=== PATIENT | male | born 1970 | race Caucasian/White ===

== ENCOUNTER 2017-09-08 15:07 | Emergency (ER) | payer OTHER, MEDICARE ==
--- NOTE | 2017-09-08 15:37 | ULT ---
VENOUS DOPPLER ULTRASOUND OF THE LEFT LOWER EXTREMITY: HISTORY: Left lower extremity edema. TECHNIQUE: Moya scale ultrasound with color flow and spectral Doppler imaging of the deep venous system of the l eft lower extremity is performed. FINDINGS: There is good flow, compression, and augmentation noted in the left common femoral, femoral, deep fem oral, popliteal, posterior tibial, and greater saphenous veins. IMPRESSION: No evidence of deep vein thrombosis in the left lower extremity. POS: ARMANDO
[2017-09-08 16:01] LABS: #Basophils 0.1 thou/uL (0.0-0.2); #Eosinphils 0.6 thou/uL (0.0-0.7); #Lymphocytes 2.7 thou/uL (1.20-3.40); #Monocytes 0.4 thou/uL (0.11-0.59); #Neutrophils 3.6 thou/uL (1.40-6.50); %Basophils 1.4 % (0.0-1.0); %Eosinophils 7.5 % (0.0-10.0); %Lymphocytes 36.9 % (21.0-51.0); %Monocytes 5.3 % (0.0-10.0); %Neutrophils 48.8 % (42.0-75.0); Mean Corpuscular HGB CONC 33.6 g/dL (32.0-36.0); Mean Corpuscular Hemoglobin 32.2 pg (27.0-31.0); Mean Corpuscular Volume 95.9 fl (80.0-94.0); Mean Platelet Volume 8.7 fL (7.4-10.4); Platelet Count 179 thou/uL (130-400); RBC Distribution Width 11.8 % (11.5-14.5); Red Blood Cell (RBC) Count 4.65 mill/uL (4.70-6.10); White Blood Cell (WBC) Count 7.3 thou/uL (4.8-10.8)
[2017-09-08 16:07] LABS: PTT 31.2 SEC (22.9-36.1); Prothrombin Time 13.4 SEC (12.0-14.7)
[2017-09-08 16:15] LABS: ALT (SGPT) 13 U/L (8-55); AST (SGOT) 14 U/L (5-34); Alkaline Phosphatase 35 U/L (40-150); Anion Gap 11 mmol/L (10-20); BUN (Urea Nitrogen) 16 mg/dL (8.9-20.6); Bilirubin, Total 0.9 mg/dL (0.2-1.2); Calc. Creatinine Clearance 0 mL/min (70-130); Calcium 8.7 mg/dL (7.8-10.44); Carbon Dioxide 23 mmol/L (22-29); Chloride 108 mmol/L (98-107); Estimated GFR-MDRD 81; Globulin 2.9 g/dL (2.4-3.5); Glucose 88 mg/dL (70-105); Potassium 4.1 mmol/L (3.5-5.1); Protein, Total 6.9 g/dL (6.0-8.3); Sodium 138 mmol/L (136-145)
--- NOTE | 2017-09-08 17:22 | RAD ---
THREE VIEWS LEFT ANKLE: 09/08/17 HISTORY: Left leg swelling. FINDINGS: The ankle mortise is congruent. There is no evidence of a fracture, dislocation or other osseous abno rmality. IMPRESSION: No acute osseous abnormality. POS: MICHELLE
== END 2017-09-08 17:39 | disposition home or self-care (01) ==
LOC: ERS 15:07
DX: M79.662 Pain in left lower leg (principal); I10 Essential (primary) hypertension; E78.5 Hyperlipidemia, unspecified; E78.00 Pure hypercholesterolemia, unspecified; F17.220 Nicotine dependence, chewing tobacco, uncomplicated; Z79.82 Long term (current) use of aspirin; Z79.899 Other long term (current) drug therapy
CPT/HCPCS: 36415; 80053; 83735; 85025; 85610; 85730

== ENCOUNTER 2024-05-30 08:49 | Outpatient (CLI) | payer MEDICARE | END 2024-05-30 08:50 | disposition home or self-care (01) | LOC: BICRAD 08:49 | PROVIDERS: ATTEND Family Medicine | DX: M71.22 Synovial cyst of popliteal space [Baker], left knee (principal); M25.562 Pain in left knee; M25.462 Effusion, left knee; M17.12 Unilateral primary osteoarthritis, left knee | CPT/HCPCS: 36415; 80053; 80061; 84436; 84443; 85025; G0103 ==

== ENCOUNTER 2024-06-05 07:56 | Outpatient (CLI) | payer MEDICARE | END 2024-06-05 07:57 | disposition home or self-care (01) | LOC: ULT 07:56 | PROVIDERS: ATTEND Family Medicine | DX: M71.22 Synovial cyst of popliteal space [Baker], left knee (principal) | CPT/HCPCS: 76999 ==